=== PATIENT | male | born 1970 | race American Indian/Alaskan Native ===

== ENCOUNTER 2017-04-04 18:34 | Emergency (ER) | payer MEDICARE, MEDICAID ==
[2017-04-04] MEDS ORDERED: MORPHINE IV ONE (19:34)
[2017-04-04] MEDS ORDERED: ZOFRAN IV ONE (19:34)
[2017-04-04 19:36] LABS: Basophils % (Auto) 0.5 % (0.0-1.8); Eosinophils % (Auto) 0.5 % (0.0-4.3); Hematocrit 39.6 % (35.5-45.6); Hemoglobin 12.6 gm/dl (11.8-15.2); Mean Corpuscular HGB Conc 32 % (32-34); Red Blood Count 6.36 M/mm3 (3.65-5.03); Red Cell Distribution Width 15.8 % (13.2-15.2)
[2017-04-04 19:38] LABS: Mean Corpuscular Hemoglobin 20 pg (28-32); Mean Corpuscular Volume 62 fl (84-94); Platelet Count 192 K/mm3 (140-440)
--- NOTE | 2017-04-04 19:38 | Emergency Department Report ---
ED Abdominal Pain HPI - General Chief Complaint: Abdominal Pain Stated Complaint: CONSTIPATION Time Seen by Provider: 04/04/17 19:28 Source: patient, EMS Mode of arrival: Stretcher Limitations: No Limitations - History of Present Illness Initial Comments: 46 years old male brought by EMS with a main complaint of abdominal pain this been going on for 5 days. Patient stated that last bowel movement was 5 days ago he also described burning sensation and a very small amount of urine when he go to the bathroom. Denied any fever no diarrhea. Reports nausea with no vomiting. MD Complaint: abdominal pain -: days(s) Location: diffuse Radiation: none Migration to: no migration Severity scale (0 -10): 6 Quality: sharp Consistency: constant Associated Symptoms: nausea. denies: vomiting, diarrhea - Related Data Home Medications Medication Instructions Recorded Confirmed Last Taken Atenolol [Tenormin] 50 mg PO BID 11/13/14 11/13/14 11/13/14 Phenytoin [Dilantin] 100 mg PO Q8HR 11/13/14 11/13/14 11/13/14 Sertraline [Zoloft] 100 mg PO QDAY 11/13/14 11/13/14 11/12/14 Previous Rx's Medication Instructions Recorded Last Taken Type Aspirin [Aspirin BABY CHEW TAB] 81 mg PO QDAY #30 tab.chew 11/17/14 Unknown Rx Doxycycline [Vibramycin CAP] 100 mg PO BID 4 Days 11/17/14 Unknown Rx Prednisone [Prednisone 5 mg (6-Day 5 mg PO .TAPER #1 tab.ds.pk 11/17/14 Unknown Rx Pack, 21 Tabs)] Ciprofloxacin HCl [Ciprofloxacin 500 mg PO Q12H #20 tab 04/04/17 Unknown Rx TAB] Lactulose 10 gm PO DAILY PRN #150 ml 04/04/17 Unknown Rx Ondansetron [Zofran Odt] 4 mg PO Q8HR PRN #14 tab.rapdis 04/04/17 Unknown Rx Allergies Allergy/AdvReac Type Severity Reaction Status Date / Time seafood Allergy Hives Uncoded 11/13/14 23:02 ED Review of Systems ROS: Stated complaint: CONSTIPATION Other details as noted in HPI Comment: All other systems reviewed and negative Constitutional: denies: chills, fever Respiratory: denies: cough, shortness of breath, SOB with exertion Cardiovascular: denies: chest pain, palpitations Gastrointestinal: abdominal pain, nausea. denies: vomiting, diarrhea, constipation, hematemesis Genitourinary: urgency, dysuria, frequency. denies: hematuria, discharge, testicular pain Neurological: denies: headache ED Past Medical Hx - Past Medical History Hx Hypertension: Yes Hx Congestive Heart Failure: No Hx Diabetes: No Hx Seizures: Yes Hx Asthma: No Hx COPD: No Additional medical history: arthritis BLE - Surgical History Past Surgical History?: Yes Hx Pacemaker: Yes - Social History Smoking Status: Never Smoker Substance Use Type: None - Medications Home Medications: Home Medications Medication Instructions Recorded Confirmed Last Taken Type Atenolol [Tenormin] 50 mg PO BID 11/13/14 11/13/14 11/13/14 History Phenytoin [Dilantin] 100 mg PO Q8HR 11/13/14 11/13/14 11/13/14 History Sertraline [Zoloft] 100 mg PO QDAY 11/13/14 11/13/14 11/12/14 History Aspirin [Aspirin BABY CHEW TAB] 81 mg PO QDAY #30 tab.chew 11/17/14 Unknown Rx Doxycycline [Vibramycin CAP] 100 mg PO BID 4 Days 11/17/14 Unknown Rx Prednisone [Prednisone 5 mg (6-Day 5 mg PO .TAPER #1 tab.ds.pk 11/17/14 Unknown Rx Pack, 21 Tabs)] Ciprofloxacin HCl [Ciprofloxacin 500 mg PO Q12H #20 tab 04/04/17 Unknown Rx TAB] Lactulose 10 gm PO DAILY PRN #150 ml 04/04/17 Unknown Rx Ondansetron [Zofran Odt] 4 mg PO Q8HR PRN #14 tab.rapdis 04/04/17 Unknown Rx ED Physical Exam - General Limitations: No Limitations General appearance: alert, in no apparent distress - Head Head exam: Present: normocephalic - Eye Eye exam: Present: normal appearance - ENT ENT exam: Present: normal exam, mucous membranes moist - Neck Neck exam: Present: normal inspection - Respiratory Respiratory exam: Present: normal lung sounds bilaterally. Absent: wheezes, rales, rhonchi - Cardiovascular Cardiovascular Exam: Present: regular rate, normal rhythm, normal heart sounds - GI/Abdominal GI/Abdominal exam: Present: soft, tenderness. Absent: guarding, rebound, rigid , normal bowel sounds, hyperactive bowel sounds, hypoactive bowel sounds, organomegaly, mass, bruit, pulsatile mass, hernia - Extremities Exam Extremities exam: Present: normal inspection - Back Exam Back exam: Present: normal inspection. Absent: CVA tenderness (R), CVA tenderness (L) - Neurological Exam Neurological exam: Present: alert, oriented X3, CN II-XII intact - Skin Skin exam: Present: warm, normal color ED Course Vital Signs 04/04/17 04/04/17 18:58 21:09 Temperature 99.7 F H Pulse Rate 76 Respiratory 20 Rate Blood Pressure 146/91 O2 Sat by Pulse 99 Oximetry - Reevaluation(s) Reevaluation #1: 04/04/17 22:56 Patient stated that he is feeling better. We'll give IV Rocephin in the ER and I'll give him a prescription for ciprofloxacin for 10 days and Zofran for nausea advised patient to follow up with his primary care physician for further management. ED Medical Decision Making - Lab Data Result diagrams: 04/04/17 19:30 04/04/17 19:30 Critical care attestation.: If time is entered above; I have spent that time in minutes in the direct care of this critically ill patient, excluding procedure time. ED Disposition Clinical Impression: Abdominal pain, UTI (urinary tract infection), Constipation Disposition: DC-01 TO HOME OR SELFCARE Is pt being admited?: No Does the pt Need Aspirin: No Condition: Stable Instructions: Abdominal Pain (ED), Urinary Tract Infection in Men (ED), Constipation in Children (ED), Constipation (ED) Referrals: PRIMARY CARE, [Primary Care Provider] - 3-5 Days
[2017-04-04 19:57] LABS: Alanine Aminotransferase 26 units/L (7-56); Albumin 3.8 g/dL (3.9-5); Alkaline Phosphatase 74 units/L (35-129); Anion Gap 18 mmol/L; Blood Urea Nitrogen 10 mg/dL (9-20); Calcium 9.8 mg/dL (8.4-10.2); Carbon Dioxide 23 mmol/L (22-30); Chloride 100.3 mmol/L (98-107); Glucose 114 mg/dL (75-100); Lipase 30 units/L (13-60); Sodium 137 mmol/L (137-145); Total Protein 7.5 g/dL (6.3-8.2)
[2017-04-04 20:27] LABS: Bacteria,Urine 1+ /HPF (Negative); Bilirubin,Urine NEG (Negative); Blood,Urine LG (Negative); Ketones,Urine NEG (Negative); Leukocyte Esterase,Urine MOD (Negative); Mucus,Urine 3+ /HPF; Nitrite,Urine POS (Negative); Urobilinogen,Urine < 2.0 mg/dL (<2.0)
[2017-04-04] MEDS ORDERED: ROCEPHIN/NS 1 GM/50 ML 1 GM/50 ML BAG IV ONE (22:53)
[2017-04-04 23:06] VITALS: BP 138/63
== END 2017-04-04 23:29 | disposition home or self-care (01) ==
LOC: ED 18:34
DX: N39.0 Urinary tract infection, site not specified (principal); K59.00 Constipation, unspecified; I10 Essential (primary) hypertension
CPT/HCPCS: 36415; 80053; 81001; 83690; 85025; 96365; 96375; 99284; J0696; J2270; J2405

== ENCOUNTER 2019-03-10 21:26 | Emergency (ER) | payer MEDICARE ==
--- NOTE | 2019-03-10 21:43 | Event Note ---
ED Screening Note Date of service: 03/10/19 Time: 21:39 ED Screening Note: This is a 48 y.o. M. that presents to the ER with weakness, headache, and dizziness x 3 days. PMH seizure, sleep apnea, migraines, HTN, and pacemaker. Patient took aspirin for headache with no improvement. This initial assessment/diagnostic orders/clinical plan/treatment(s) is/are subject to change based on patients health status, clinical progression and re- assessment by fellow clinical providers in the ED. Further treatment and workup at subsequent clinical providers discretion. Patient/guardian urged not to elope from the ED as their condition may be serious if not clinically assessed and managed. Initial orders include: Labs
[2019-03-10 21:59] LABS: Basophils % (Auto) 0.3 % (0.0-1.8); Eosinophils # (Auto) 0.1 K/mm3 (0.0-0.4); Eosinophils % (Auto) 0.8 % (0.0-4.3); Hematocrit 39.6 % (35.5-45.6); Lymphocytes # (Auto) 1.1 K/mm3 (1.2-5.4); Lymphocytes % (Auto) 16.4 % (13.4-35.0); Mean Corpuscular HGB Conc 33 % (32-34); Monocytes # (Auto) 0.9 K/mm3 (0.0-0.8); Monocytes % (Auto) 14.7 % (0.0-7.3); Red Blood Count 6.27 M/mm3 (3.65-5.03)
[2019-03-10 22:10] LABS: Mean Corpuscular Volume 63 fl (84-94); Platelet Count 176 K/mm3 (140-440)
[2019-03-10 22:21] LABS: Alanine Aminotransferase 16 units/L (7-56); Albumin 4.2 g/dL (3.9-5); BUN/Creatinine Ratio 9; Blood Urea Nitrogen 10 mg/dL (9-20); Calcium 10.2 mg/dL (8.4-10.2); Hemolysis Index 7
[2019-03-10] MEDS ORDERED: BENADRYL PO ONE (22:32)
[2019-03-10] MEDS ORDERED: FIORICET PO ONE (22:32)
--- NOTE | 2019-03-10 23:08 | XRay Report ---
CHEST 2 VIEWS INDICATION / CLINICAL INFORMATION: cough. COMPARISON: 2014 FINDINGS: SUPPORT DEVICES: Pacemaker is in place on the left. HEART / MEDIASTINUM: No significant abnormality. LUNGS / PLEURA: No significant pulmonary or pleural abnormality. No pneumothorax. ADDITIONAL FINDINGS: No significant additional findings. IMPRESSION: 1. No acute findings. Signer Name: Jessee Cerna MD Signed: 03/10/2019 11:03 PM Workstation Name: [id number]
--- NOTE | 2019-03-11 00:05 | Cat Scan Report ---
Head CT without intravenous contrast INDICATION: Indication COMPARISON: None FINDINGS: The ventricles are normal in size and position. No hemorrhage or extra-axial fluid collecti on. No edema or mass effect. No focal infarct seen. Portions of the sinuses visualized are clear. No skull fracture identified. IMPRESSION: Negative head CT Automated exposure control was utilized to diminish radiation dose Signer Name: Jessee Cerna MD Signed: 03/11/2019 12:01 AM Workstation Name: [id number]
--- NOTE | 2019-03-11 03:34 | Emergency Department Report ---
ED General Adult HPI - General Chief complaint: Weakness Stated complaint: WEAKNESS Time Seen by Provider: 03/10/19 21:39 Source: patient, EMS Mode of arrival: Ambulatory Limitations: No Limitations - History of Present Illness Initial comments: Patient is a 48-year-old [place] male with a history of chronic seizures, CHF, hypertension and migraine headaches who presents to the ED with complaint of acute exacerbation of his chronic migraine headaches with lightheadedness and generalized weakness for the last 1 week, worse in the last 2 days. Patient states that he has been taking [id number] Tylenol and Aleve with no relief. Patient denies visual loss, syncope, seizures, chest pain, shortness of breath, nausea, vomiting, abdominal pain, fever, chills, cough, palpitations or dizziness. MD Complaint: Migraine headache, lightheadedness, generalized weakness -: Sudden, week(s) (1) Location: head Radiation: non-radiation Severity scale (0 -10): 5 Quality: aching, sharp Consistency: constant Improves with: none Worsens with: none Associated Symptoms: denies other symptoms, headaches, weakness. denies: confusion, chest pain, cough, diaphoresis, fever/chills, loss of appetite, ma laise, nausea/vomiting, seizure, shortness of breath, syncope Treatments Prior to Arrival: none - Related Data Home Medications Medication Instructions Recorded Confirmed Last Taken Atenolol [Tenormin] 50 mg PO BID 11/13/14 11/13/14 11/13/14 Phenytoin [Dilantin] 100 mg PO Q8HR 11/13/14 11/13/14 11/13/14 Sertraline [Zoloft] 100 mg PO QDAY 11/13/14 11/13/14 11/12/14 Previous Rx's Medication Instructions Recorded Last Taken Type Aspirin [Aspirin BABY CHEW TAB] 81 mg PO QDAY #30 tab.chew 11/17/14 Unknown Rx DOXYCYCLINE Hyclate [Vibramycin 100 mg PO BID 4 Days capsule 11/17/14 Unknown Rx CAP] Prednisone [Prednisone 5 mg (6-Day 5 mg PO .TAPER #1 tab.ds.pk 11/17/14 Unknown Rx Pack, 21 Tabs)] Ciprofloxacin HCl [Ciprofloxacin 500 mg PO Q12H #20 tab 04/04/17 Unknown Rx TAB] Lactulose 10 gm PO DAILY PRN #150 ml 04/04/17 Unknown Rx Ondansetron [Zofran Odt] 4 mg PO Q8HR PRN #14 tab.rapdis 04/04/17 Unknown Rx Butalb/Acetamin/Caff 50-325-40 1 tab PO Q6HR PRN #15 tab 03/11/19 Unknown Rx [Fioricet 50-325-40] Ondansetron [Zofran Odt] 4 mg PO Q6HR PRN #15 tab.rapdis 03/11/19 Unknown Rx Allergies Allergy/AdvReac Type Severity Reaction Status Date / Time seafood Allergy Hives Uncoded 11/13/14 23:02 ED Review of Systems ROS: Stated complaint: WEAKNESS Other details as noted in HPI Constitutional: weakness. denies: chills, fever Eyes: denies: eye pain, eye discharge, vision change ENT: denies: ear pain, throat pain Respiratory: denies: cough, shortness of breath, wheezing Cardiovascular: denies: chest pain, palpitations Endocrine: no symptoms reported Gastrointestinal: denies: abdominal pain, nausea, vomiting, diarrhea, constipation, hematemesis Genitourinary: denies: urgency, dysuria Musculoskeletal: denies: back pain, joint swelling, arthralgia Skin: denies: rash, lesions Neurological: headache. denies: weakness, paresthesias, abnormal gait, vertigo, other Psychiatric: denies: anxiety, depression Hematological/Lymphatic: denies: easy bleeding, easy bruising ED Past Medical Hx - Past Medical History Previous Medical History?: Yes Hx Hypertension: Yes Hx Congestive Heart Failure: No Hx Diabetes: No Hx Seizures: Yes Hx Asthma: No Hx COPD: No Additional medical history: arthritis BLE. sleep apnea - Surgical History Past Surgical History?: Yes Hx Pacemaker: Yes - Social History Smoking Status: Never Smoker Substance Use Type: None - Medications Home Medications: Home Medications Medication Instructions Recorded Confirmed Last Taken Type Atenolol [Tenormin] 50 mg PO BID 11/13/14 11/13/14 11/13/14 History Phenytoin [Dilantin] 100 mg PO Q8HR 11/13/14 11/13/14 11/13/14 History Sertraline [Zoloft] 100 mg PO QDAY 11/13/14 11/13/14 11/12/14 History Aspirin [Aspirin BABY CHEW TAB] 81 mg PO QDAY #30 tab.chew 11/17/14 Unknown Rx DOXYCYCLINE Hyclate [Vibramycin 100 mg PO BID 4 Days capsule 11/17/14 Unknown Rx CAP] Prednisone [Prednisone 5 mg (6-Day 5 mg PO .TAPER #1 tab.ds.pk 11/17/14 Unknown Rx Pack, 21 Tabs)] Ciprofloxacin HCl [Ciprofloxacin 500 mg PO Q12H #20 tab 04/04/17 Unknown Rx TAB] Lactulose 10 gm PO DAILY PRN #150 ml 04/04/17 Unknown Rx Ondansetron [Zofran Odt] 4 mg PO Q8HR PRN #14 tab.rapdis 04/04/17 Unknown Rx Butalb/Acetamin/Caff 50-325-40 1 tab PO Q6HR PRN #15 tab 03/11/19 Unknown Rx [Fioricet 50-325-40] Ondansetron [Zofran Odt] 4 mg PO Q6HR PRN #15 tab.rapdis 03/11/19 Unknown Rx ED Physical Exam - General Limitations: No Limitations General appearance: alert, in no apparent distress - Head Head exam: Present: atraumatic, normocephalic, normal inspection - Eye Eye exam: Present: normal appearance, PERRL, EOMI. Absent: scleral icterus, conjunctival injection, nystagmus, periorbital swelling, periorbital tenderness Pupils: Present: normal accommodation - ENT ENT exam: Present: normal exam, normal orophraynx, mucous membranes moist, TM's normal bilaterally, normal external ear exam - Neck Neck exam: Present: normal inspection, full ROM. Absent: tenderness, l ymphadenopathy - Respiratory Respiratory exam: Present: normal lung sounds bilaterally. Absent: respiratory distress, wheezes, rales, rhonchi, chest wall tenderness, accessory muscle use, decreased breath sounds, prolonged expiratory - Cardiovascular Cardiovascular Exam: Present: regular rate, normal rhythm, normal heart sounds. Absent: systolic murmur, diastolic murmur, rubs, gallop - GI/Abdominal GI/Abdominal exam: Present: soft, normal bowel sounds. Absent: tenderness, marija ound, hyperactive bowel sounds, hypoactive bowel sounds, organomegaly, mass - Rectal Rectal exam: Present: deferred - Extremities Exam Extremities exam: Present: normal inspection, full ROM, normal capillary refill - Back Exam Back exam: Present: normal inspection, full ROM. Absent: tenderness, CVA tenderness (R), CVA tenderness (L), muscle spasm, paraspinal tenderness, vertebral tenderness - Neurological Exam Neurological exam: Present: alert, oriented X3, CN II-XII intact, normal gait, reflexes normal - Psychiatric Psychiatric exam: Present: normal affect, normal mood - Skin Skin exam: Present: warm, dry, intact, normal color. Absent: rash ED Course Vital Signs 03/10/19 21:30 Temperature 98.6 F Pulse Rate 77 Respiratory 16 Rate Blood Pressure 150/91 O2 Sat by Pulse 98 Oximetry - Reevaluation(s) Reevaluation #1: 03/11/19 03:34 This is a 48-year-old [place] male who presented to the ED with persistent headache with generalized weakness for one week. In the ED, the patient is alert and oriented 3 and is not in distress. Labs were drawn and EKG also performed as well as a chest x-ray and head CT scan without contrast. Patient was treated for migraine headache in the ED. Lab test results were reviewed and are unremarkable including initial troponin and troponin levels. Chest x-ray shows no acute cardiopulmonary abnormalities. Head CT scan without contrast shows no acute intracranial abnormalities or hemorrhage. On reevaluation, patient's headache resolved, patient was sleeping in the room in no distress. Patient was discharged home on medications and advised to follow- up his primary care physician in 5-7 days for reevaluation or return to the ED immediately if symptoms get worse. ED Medical Decision Making - Lab Data Result diagrams: 03/10/19 21:49 03/10/19 21:49 - Radiology Data Radiology results: report reviewed, image reviewed Head CT Scan w/o contrast: No acute intracranial abnormalities or hemorrhage Chest x-ray: No acute cardiopulmonary abnormalities - Medical Decision Making This is a 48-year-old [place] male who presented to the ED with persi stent headache with generalized weakness for one week. In the ED, the patient is alert and oriented 3 and is not in distress. Labs were drawn and EKG also performed as well as a chest x-ray and head CT scan without contrast. Patient was treated for migraine headache in the ED. Lab test results were reviewed and are unremarkable including initial troponin and troponin levels. Chest x-ray shows no acute cardiopulmonary abnormalities. Head CT scan without contrast shows no acute intracranial abnormalities or hemorrhage. On reevaluation, patient's headache resolved, patient was sleeping in the room in no distress. Patient was discharged home on medications and advised to follow-up his primary care physician in 5-7 days for reevaluation or return to the ED immediately if symptoms get worse. - Differential Diagnosis Migraine headache, Dizziness, CHF exacerbation, Pneumonia Critical care attestation.: If time is entered above; I have spent that time in minutes in the direct care of this critically ill patient, excluding procedure time. ED Disposition Clinical Impression: Generalized weakness Migraine headache without aura Qualifiers: Status migrainosus presence: without status migrainosus Intractability: not intractable Qualified Code(s): G43.009 - Migraine without aura, not intractable, without status migrainosus Disposition: TO HOME OR SELFCARE Is pt being admited?: No Does the pt Need Aspirin: No Condition: Stable Instructions: Migraine Headache (ED), Weakness (ED) Additional Instructions: Take medications with food, drink plenty of fluids and follow up with your primary care physician in 5-7 days for reevaluation. Return to the ED immediately if symptoms get worse. Prescriptions: Butalb/Acetamin/Caff 50-325-40 [Fioricet 50-325-40] 1 tab PO Q6HR PRN #15 tab PRN Reason: Headache Ondansetron [Zofran Odt] 4 mg PO Q6HR PRN #15 tab.rapdis PRN Reason: Nausea Referrals: NICOLE QUEZADA MD [Primary Care Provider] - 3-5 Days Time of Disposition: 03:39 Print Language: HUNGARIAN
[2019-03-11 04:16] VITALS: BP 112/72
== END 2019-03-11 05:20 | disposition home or self-care (01) ==
LOC: ED 21:26
DX: G43.009 Migraine without aura, not intractable, without status migrainosus (principal); R53.1 Weakness; I10 Essential (primary) hypertension; M19.90 Unspecified osteoarthritis, unspecified site; G47.30 Sleep apnea, unspecified; Z95.0 Presence of cardiac pacemaker; Z79.899 Other long term (current) drug therapy; Z91.013 Allergy to seafood
CPT/HCPCS: 36415; 70450; 71046; 80053; 83880; 84484; 85025; 93005; 93010

== ENCOUNTER 2019-03-11 07:00 | Emergency (ER) | payer OTHER, MEDICARE ==
[2019-03-11] MEDS ORDERED: PERCOCET 5/325 PO ONE (07:35)
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
[2019-03-11 09:02] VITALS: BP 141/78
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
== END 2019-03-11 11:13 | disposition home or self-care (01) ==
LOC: ED 07:00
DX: M54.2 Cervicalgia (principal); R51 Headache; M25.512 Pain in left shoulder; I11.0 Hypertensive heart disease with heart failure; I50.9 Heart failure, unspecified; M19.90 Unspecified osteoarthritis, unspecified site; G47.30 Sleep apnea, unspecified; Z79.899 Other long term (current) drug therapy; Z95.0 Presence of cardiac pacemaker; V20.5XXA Motorcycle passenger injured in collision with pedestrian or animal in traffic accident, initial encounter; Y93.89 Activity, other specified; Y92.410 Unspecified street and highway as the place of occurrence of the external cause; Y99.8 Other external cause status
CPT/HCPCS: 70450; 71046; 72125